=== PATIENT | female | born 1960 | race African-American/Black ===

== ENCOUNTER 2019-11-03 00:53 | Emergency (ER) | payer MEDICARE, MEDICAID ==
[~2019-11-03] VITALS: Ht 165.1 cm; Wt 90.7 kg
[~2019-11-03 00:53] MED LIST: ASPIRIN EC81 M1; JANUMET 50-5001 EACH; MEDROLDOSEPACK PO; NEURONTIN 300300 M1; PERCOCET 5-3251 EACH PO; PRINIVIL20 MG; VICODIN; VYTORIN 10-401 EACH
[2019-11-03] MEDS ORDERED: DULOXETINE HCL30 MG PO (01:02)
[2019-11-03] MEDS ORDERED: DICYCLOMINE HCL20 MG PO (01:02)
[2019-11-03] MEDS ORDERED: METFORMIN HCL500 M3 PO ×2 (01:02→01:04)
[2019-11-03] MEDS ORDERED: IBU800 MG PO (01:03)
[2019-11-03] MEDS ORDERED: ZENPEP DR 15,01 EACH PO (01:03)
[2019-11-03] MEDS ORDERED: NORVASC 2.5 MG2.5 M1 PO (01:03)
[2019-11-03] MEDS ORDERED: LYRICA 75 MG CA75 MG PO (01:03)
[2019-11-03] MEDS ORDERED: HYDROCODONE-ACE15 ML PO (01:27)
[2019-11-03] MEDS ORDERED: AMOXIL 875 MG875 M1 PO (01:27)
[2019-11-03 01:56] VITALS: BP 131/56
== END 2019-11-03 01:58 | disposition home or self-care (01) ==
LOC: M.ERS 00:53
DX: J02.0 Streptococcal pharyngitis (principal); I10 Essential (primary) hypertension; E11.9 Type 2 diabetes mellitus without complications; R42 Dizziness and giddiness; Z90.710 Acquired absence of both cervix and uterus; Z79.82 Long term (current) use of aspirin; Z79.899 Other long term (current) drug therapy

== ENCOUNTER 2019-11-13 10:47 | Emergency (ER) | payer MEDICARE, MEDICAID ==
[~2019-11-13] VITALS: Ht 165.1 cm; Wt 90.7 kg
[~2019-11-13 10:47] MED LIST changes: +AMOXIL 875 MG875 M1 PO; +DICYCLOMINE HCL20 MG PO; +DULOXETINE HCL30 MG PO; +HYDROCODONE-ACE15 ML PO; +IBU800 MG PO; +LYRICA 75 MG CA75 MG PO; +METFORMIN HCL500 M3 PO; +NORVASC 2.5 MG2.5 M1 PO; +ZENPEP DR 15,01 EACH PO
[2019-11-13] MEDS ORDERED: LANTUS SUBQ (11:02)
[2019-11-13] MEDS ORDERED: FLEXERIL PO (11:03)
[2019-11-13] MEDS ORDERED: ZESTRIL20 MG PO (11:03)
[2019-11-13] MEDS ORDERED: TRAZODONE HCL100 MG PO (11:04)
[2019-11-13] MEDS ORDERED: PROAIR HFA8.5 GM INH (11:04)
[2019-11-13] MEDS ORDERED: HYDROCODON-ACE1 EAC7 PO (12:59)
[2019-11-13 13:18] VITALS: BP 114/81
== END 2019-11-13 13:21 | disposition home or self-care (01) ==
LOC: M.ERS 10:47
DX: B27.90 Infectious mononucleosis, unspecified without complication (principal); M19.90 Unspecified osteoarthritis, unspecified site; E11.9 Type 2 diabetes mellitus without complications; I10 Essential (primary) hypertension; F17.210 Nicotine dependence, cigarettes, uncomplicated; Z90.710 Acquired absence of both cervix and uterus; Z91.041 Radiographic dye allergy status

== ENCOUNTER 2020-04-24 15:24 | Emergency (ER) | payer OTHER, MEDICAID ==
[~2020-04-24] VITALS: Ht 165.1 cm; Wt 90.7 kg
[~2020-04-24 15:24] MED LIST changes: +FLEXERIL PO; +HYDROCODON-ACE1 EAC7 PO; +LANTUS SUBQ; +PROAIR HFA8.5 GM INH; +TRAZODONE HCL100 MG PO; +ZESTRIL20 MG PO
[2020-04-24] MEDS ORDERED: ZPAK PO (17:08)
[2020-04-24] MEDS ORDERED: PERCOCET 5-3251 EACH PO (17:08)
[2020-04-24] MEDS ORDERED: VENTOLIN HFA 1818 GM INH (17:08)
[2020-04-24] MEDS ORDERED: PREDNISONE 20 M20 M1 PO (17:08)
[2020-04-24] MEDS ORDERED: TESSALON PERLE100 MG PO (17:08)
[2020-04-24 17:37] VITALS: BP 145/93
== END 2020-04-24 17:38 | disposition home or self-care (01) ==
LOC: M.ERS 15:24
DX: J40 Bronchitis, not specified as acute or chronic (principal); Z20.828 Contact with and (suspected) exposure to other viral communicable diseases; E11.9 Type 2 diabetes mellitus without complications; M19.90 Unspecified osteoarthritis, unspecified site; I10 Essential (primary) hypertension; Z91.041 Radiographic dye allergy status; Z79.899 Other long term (current) drug therapy; Z79.4 Long term (current) use of insulin; Z90.710 Acquired absence of both cervix and uterus

== ENCOUNTER 2020-09-28 13:39 | Emergency (ER) | payer OTHER, MEDICAID ==
[~2020-09-28] VITALS: Ht 162.6 cm; Wt 90.7 kg
[~2020-09-28 13:39] MED LIST changes: +PREDNISONE 20 M20 M1 PO; +TESSALON PERLE100 MG PO; +VENTOLIN HFA 1818 GM INH; +ZPAK PO
[2020-09-28] MEDS ORDERED: VICTOZA0.6 MG/0.1 SUBQ (14:05)
[2020-09-28] MEDS ORDERED: LEVO-T25 MCG PO (14:05)
[2020-09-28] MEDS ORDERED: AUGMENTIN 875-1 EACH PO (15:09)
[2020-09-28] MEDS ORDERED: PREDNISONE50 MG PO (15:09)
[2020-09-28] MEDS ORDERED: DULERA 200 MCG/13 GM INH (15:09)
[2020-09-28] MEDS ORDERED: PROMETHAZINE-D473 M1 PO (15:09)
[2020-09-28 15:10] VITALS: BP 138/85
== END 2020-09-28 15:10 | disposition home or self-care (01) ==
LOC: M.ERS 13:39
DX: J44.1 Chronic obstructive pulmonary disease with (acute) exacerbation (principal); Z20.828 Contact with and (suspected) exposure to other viral communicable diseases; E11.9 Type 2 diabetes mellitus without complications; M19.90 Unspecified osteoarthritis, unspecified site; I10 Essential (primary) hypertension; Z91.041 Radiographic dye allergy status; Z90.710 Acquired absence of both cervix and uterus